=== PATIENT | female | born 1990 | race Caucasian/White ===

== ENCOUNTER 2016-04-12 19:53 | Emergency (ER) | payer MEDICAID ==
[~2016-04-12] VITALS: Ht 152.4 cm; Wt 101.4 kg
[~2016-04-12 19:53] MED LIST: FLAGYL500 MG PO; NAUSEA MED; PRENATAL1 TA7 PO
[2016-04-12 19:54] VITALS: TEMP 98.2
[2016-04-12] MEDS ORDERED: DICLEGIS PO (19:58)
[2016-04-12 20:44] LABS: PH 6 (5-8); URINE APPEARANCE Hazy; URINE BACTERIA None Seen /hpf; URINE BILIRUBIN Negative (NEGATIVE); URINE BLOOD Negative (NEGATIVE); URINE COLOR Yellow; URINE GLUCOSE Negative (NEGATIVE); URINE KETONE Trace (NEGATIVE)
[2016-04-12 20:49] LABS: INFLUENZA B NEGATIVE
[2016-04-12] MEDS ORDERED: CEPHALEXIN500 M1 PO (21:01)
[2016-04-12 21:04] VITALS: BP 114/73; PULSE 100
== END 2016-04-12 21:08 | disposition home or self-care (01) ==
LOC: COL.ER 19:53
PROVIDERS: Emergency Medicine
DX: O99.89 Other specified diseases and conditions complicating pregnancy, childbirth and the puerperium (principal); R50.9 Fever, unspecified; R31.9 Hematuria, unspecified; Z3A.27 27 weeks gestation of pregnancy

== ENCOUNTER 2017-07-03 19:16 | Emergency (ER) | payer MEDICAID ==
[~2017-07-03] VITALS: Ht 152.4 cm; Wt 105.5 kg
[~2017-07-03 19:16] MED LIST changes: +CEPHALEXIN500 M1 PO; +DICLEGIS PO
[2017-07-03 19:22] VITALS: BP 129/69; PULSE 110; TEMP 99.1
== END 2017-07-03 20:30 | disposition home or self-care (01) ==
LOC: COL.ER 19:16
DX: G43.909 Migraine, unspecified, not intractable, without status migrainosus (principal); F17.210 Nicotine dependence, cigarettes, uncomplicated; Z98.890 Other specified postprocedural states
CPT/HCPCS: J1885; J2550

== ENCOUNTER → 2017-07-09 | Outpatient (CLI) | payer MEDICAID ==
[2017-07-09 16:40] LABS: BASO # 0.1 (0.0-0.2); BASO % 0.4 % (0.0-2.0); EOS # 0.2 (0.0-0.7); EOS % 1.8 % (0-4.0); GRAN # 8.7 (1.4-6.5); GRAN % 66.6 % (42.2-75.2); HEMATOCRIT 44.3 % (37.0-47.0); HEMOGLOBIN 14.4 g/dl (12.5-16.0); LYMPH # 3.5 (1.2-3.4); MEAN CELL VOLUME 77 fl (80.0-100.0); MEAN CORPUSCULAR HEMOGLOBIN 25 pg (27.0-31.0); MEAN CORPUSCULAR HGB CONC 33 g/dl (33.0-37.0); MEAN PLATELET VOLUME 9.9 fl (7.4-10.4); MONO # 0.5 (0.1-0.6); MONO % 3.9 % (1.7-9.3); PLATELET COUNT 312 K/mm3 (130-400); RED BLOOD COUNT 5.75 M/mm3 (4.10-5.30); REDCELL DISTRIBUTION WIDTH-CV 15.9 % (11.5-14.5)
[2017-07-09 16:53] LABS: ALBUMIN 4.1 gm/dL (3.5-5.0); BILIRUBIN,TOTAL 0.4 mg/dL (0.0-1.0); C-REACTIVE PROTEIN 0.9 mg/dL (0.0-0.9); CALCIUM 9.3 mg/dL (8.4-10.2); CHOLESTEROL RISK RATIO 4.9; CREATININE, serum 0.86 mg/dL (0.52-1.25); TOTAL PROTEIN 8.1 gm/dL (6.4-8.2)
[2017-07-09 17:10] LABS: ERYTHROCYTE SEDIMENTATION RATE 8 mm/hr (0-20)
[2017-07-09 17:20] LABS: TSH w REFLEX 2.01 uIU/mL (0.465-4.680)
== END ==
LOC: COL.LAB 16:20
PROVIDERS: Family Medicine
DX: R53.82 Chronic fatigue, unspecified (principal); D64.9 Anemia, unspecified; E11.9 Type 2 diabetes mellitus without complications; Z13.220 Encounter for screening for lipoid disorders; Z13.29 Encounter for screening for other suspected endocrine disorder

== ENCOUNTER 2017-09-25 12:51 | Emergency (ER) | payer MEDICAID ==
[~2017-09-25] VITALS: Ht 152.4 cm; Wt 118.2 kg
[2017-09-25 12:53] VITALS: TEMP 98.3
[2017-09-25 13:56] LABS: BASO # 0.1 (0.0-0.2); BASO % 0.5 % (0.0-2.0); EOS # 0.4 (0.0-0.7); EOS % 3.5 % (0-4.0); GRAN # 8.1 (1.4-6.5); GRAN % 64.9 % (42.2-75.2); HEMATOCRIT 41.7 % (37.0-47.0); HEMOGLOBIN 13.8 g/dl (12.5-16.0); LYMPH % 24.2 % (20.0-51.0); MEAN CELL VOLUME 77 fl (80.0-100.0); MEAN CORPUSCULAR HEMOGLOBIN 26 pg (27.0-31.0); MEAN CORPUSCULAR HGB CONC 33 g/dl (33.0-37.0); MEAN PLATELET VOLUME 10.3 fl (7.4-10.4); MONO # 0.8 (0.1-0.6); MONO % 6.5 % (1.7-9.3); PLATELET COUNT 268 K/mm3 (130-400); RED BLOOD COUNT 5.41 M/mm3 (4.10-5.30); REDCELL DISTRIBUTION WIDTH-CV 16.2 % (11.5-14.5)
[2017-09-25 14:08] LABS: ALANINE AMINOTRANSFERASE 66 U/L (9-52); ALKALINE PHOSPHATASE 73 U/L (50-136); ANION GAP 12 mmol/L (7-16); AST,SGOT 45 U/L (15-37); BILIRUBIN,TOTAL 0.4 mg/dL (0.0-1.0); BLOOD UREA NITROGEN 7 mg/dL (7-17); CALCIUM 9.5 mg/dL (8.4-10.2); CARBON DIOXIDE 26 mmol/L (22-30); CHLORIDE 102 mmol/L (98-107); CREATININE, serum 0.63 mg/dL (0.52-1.25); GLUCOSE 115 mg/dL (74-106); LIPASE 26 U/L (23-300); POTASSIUM 3.9 mmol/L (3.4-5.0); SODIUM 140 mmol/L (137-145); TOTAL PROTEIN 7.2 gm/dL (6.4-8.2)
[2017-09-25 14:29] LABS: TROPONIN-I < 0.012 ng/mL (0.000-0.034)
[2017-09-25 15:14] LABS: COLLECTION METHOD CLEAN CATCH
[2017-09-25 15:27] LABS: MUCOUS Present /lpf; PH 6 (5-8); URINE APPEARANCE Cloudy; URINE BACTERIA Many /hpf; URINE BILIRUBIN Negative (NEGATIVE); URINE BLOOD 1+ (NEGATIVE); URINE COLOR Yellow; URINE GLUCOSE Negative (NEGATIVE); URINE KETONE Negative (NEGATIVE); URINE LEUKOCYTE ESTERASE Trace (NEGATIVE); URINE NITRATE Positive (NEGATIVE); URINE PROTEIN(semi-quant) Negative (NEGATIVE); URINE UROBILINOGEN Negative (NEGATIVE)
[2017-09-25] MEDS ORDERED: PROVENTIL0.09 MG/A1 IH (16:25)
[2017-09-25] MEDS ORDERED: ZITHROMAX 250M250 MG PO (16:25)
[2017-09-25 16:31] VITALS: BP 114/74; PULSE 85
[2017-09-27] MEDS ORDERED: CEFTIN500 MG PO (15:40)
== END 2017-09-25 16:32 | disposition home or self-care (01) ==
LOC: COL.ER 12:51
PROVIDERS: Emergency Medicine
DX: J40 Bronchitis, not specified as acute or chronic (principal); R07.9 Chest pain, unspecified
CPT/HCPCS: J1885; J7030

== ENCOUNTER 2017-10-17 22:09 | Emergency (ER) | payer MEDICAID ==
[~2017-10-17] VITALS: Ht 152.4 cm; Wt 117.3 kg
[~2017-10-17 22:09] MED LIST changes: +CEFTIN500 MG PO; +PROVENTIL0.09 MG/A1 IH; +ZITHROMAX 250M250 MG PO
[2017-10-17 22:12] VITALS: TEMP 98.9
[2017-10-17] MEDS ORDERED: MOTRIN 800800 MG/TAB PO (23:03)
[2017-10-17] MEDS ORDERED: TYLENOL 500MG500 MG PO (23:03)
[2017-10-17 23:06] LABS: BASO # 0.1 (0.0-0.2); BASO % 0.6 % (0.0-2.0); EOS # 0.3 (0.0-0.7); EOS % 1.8 % (0-4.0); GRAN # 9.8 (1.4-6.5); GRAN % 63.7 % (42.2-75.2); HEMATOCRIT 39.9 % (37.0-47.0); HEMOGLOBIN 13.2 g/dl (12.5-16.0); LYMPH # 4.2 (1.2-3.4); LYMPH % 27.4 % (20.0-51.0); MEAN CELL VOLUME 78 fl (80.0-100.0); MEAN CORPUSCULAR HEMOGLOBIN 26 pg (27.0-31.0); MEAN CORPUSCULAR HGB CONC 33 g/dl (33.0-37.0); MONO # 0.9 (0.1-0.6); MONO % 5.9 % (1.7-9.3); PLATELET COUNT 267 K/mm3 (130-400); RED BLOOD COUNT 5.09 M/mm3 (4.10-5.30); REDCELL DISTRIBUTION WIDTH-CV 15.8 % (11.5-14.5)
[2017-10-17 23:16] LABS: ALANINE AMINOTRANSFERASE 63 U/L (9-52); ALBUMIN 3.9 gm/dL (3.5-5.0); ALKALINE PHOSPHATASE 68 U/L (50-136); ANION GAP 8 mmol/L (7-16); AST,SGOT 35 U/L (15-37); BILIRUBIN,TOTAL 0.4 mg/dL (0.0-1.0); BLOOD UREA NITROGEN 11 mg/dL (7-17); CALCIUM 9.1 mg/dL (8.4-10.2); CARBON DIOXIDE 27 mmol/L (22-30); CHLORIDE 101 mmol/L (98-107); CREATININE, serum 0.72 mg/dL (0.52-1.25); GLUCOSE 122 mg/dL (74-106); POTASSIUM 3.5 mmol/L (3.4-5.0); SODIUM 137 mmol/L (137-145)
[2017-10-17 23:28] LABS: TROPONIN-I < 0.012 ng/mL (0.000-0.034)
[2017-10-17 23:51] LABS: COLLECTION METHOD CLEAN CATCH
[2017-10-17 23:58] LABS: MUCOUS Present /lpf; PH 5 (5-8); URINE APPEARANCE Cloudy; URINE BACTERIA None Seen /hpf; URINE BILIRUBIN Negative (NEGATIVE); URINE BLOOD 1+ (NEGATIVE); URINE CALCIUM OXALATE CRYSTAL Present /hpf; URINE COLOR Yellow; URINE GLUCOSE Negative (NEGATIVE); URINE KETONE Negative (NEGATIVE); URINE LEUKOCYTE ESTERASE Trace (NEGATIVE); URINE NITRATE Negative (NEGATIVE); URINE PROTEIN(semi-quant) Negative (NEGATIVE); URINE RBC 20-50 /hpf; URINE UROBILINOGEN >=4.0 mg/dL (NEGATIVE)
[2017-10-18 01:24] VITALS: BP 107/72; PULSE 96
== END 2017-10-18 01:24 | disposition home or self-care (01) ==
LOC: COL.ER 22:09
PROVIDERS: Emergency Medicine
DX: R51 Headache (principal); R22.43 Localized swelling, mass and lump, lower limb, bilateral; R22.33 Localized swelling, mass and lump, upper limb, bilateral; Z98.51 Tubal ligation status

== ENCOUNTER 2018-01-26 22:49 | Emergency (ER) | payer MEDICAID ==
[~2018-01-26] VITALS: Ht 152.4 cm; Wt 121.8 kg
[~2018-01-26 22:49] MED LIST changes: +MOTRIN 800800 MG/TAB PO; +TYLENOL 500MG500 MG PO
[2018-01-27 00:25] VITALS: BP 116/62; PULSE 99; TEMP 98.4
== END 2018-01-27 00:25 | disposition home or self-care (01) ==
LOC: COL.ER 22:49
DX: G43.909 Migraine, unspecified, not intractable, without status migrainosus (principal); F17.210 Nicotine dependence, cigarettes, uncomplicated; Z98.890 Other specified postprocedural states; Z98.51 Tubal ligation status
CPT/HCPCS: J1200; J1885; J2765; J7030

== ENCOUNTER 2018-03-31 21:44 | Emergency (ER) | payer MEDICAID ==
[~2018-03-31] VITALS: Ht 152.4 cm; Wt 121.8 kg
[2018-03-31 21:47] VITALS: BP 120/60; TEMP 98.7
[2018-03-31] MEDS ORDERED: DOXYCYCLINE HY100 MG PO (22:08)
[2018-03-31 22:36] VITALS: PULSE 66
== END 2018-03-31 22:37 | disposition home or self-care (01) ==
LOC: COL.ER 21:44
DX: L03.112 Cellulitis of left axilla (principal); F17.210 Nicotine dependence, cigarettes, uncomplicated; E66.9 Obesity, unspecified; Z68.43 Body mass index [BMI] 50.0-59.9, adult

== ENCOUNTER 2018-04-25 00:30 | Emergency (ER) | payer MEDICAID ==
[~2018-04-25] VITALS: Ht 152.4 cm; Wt 119.1 kg
[~2018-04-25 00:30] MED LIST changes: +DOXYCYCLINE HY100 MG PO
[2018-04-25 01:21] LABS: HEMATOCRIT 38.3 % (37.0-47.0); HEMOGLOBIN 12.4 g/dl (12.5-16.0); MEAN CELL VOLUME 77 fl (80.0-100.0); MEAN CORPUSCULAR HEMOGLOBIN 25 pg (27.0-31.0); MEAN CORPUSCULAR HGB CONC 32 g/dl (33.0-37.0); MEAN PLATELET VOLUME 10.2 fl (7.4-10.4); PLATELET COUNT 271 K/mm3 (130-400); RED BLOOD COUNT 4.95 M/mm3 (4.10-5.30); REDCELL DISTRIBUTION WIDTH-CV 16.7 % (11.5-14.5)
[2018-04-25 01:29] LABS: ALANINE AMINOTRANSFERASE 44 U/L (9-52); ALBUMIN 3.7 gm/dL (3.5-5.0); ALKALINE PHOSPHATASE 57 U/L (50-136); ANION GAP 6 mmol/L (7-16); AST,SGOT 39 U/L (15-37); BILIRUBIN,TOTAL 0.2 mg/dL (0.0-1.0); BLOOD UREA NITROGEN 15 mg/dL (7-17); CALCIUM 9.1 mg/dL (8.4-10.2); CARBON DIOXIDE 29 mmol/L (22-30); CHLORIDE 106 mmol/L (98-107); CREATININE, serum 0.66 mg/dL (0.52-1.25); GLUCOSE 132 mg/dL (74-106); SODIUM 141 mmol/L (137-145); TOTAL PROTEIN 6.7 gm/dL (6.4-8.2)
[2018-04-25 01:42] LABS: TROPONIN-I < 0.012 ng/mL (0.000-0.035)
[2018-04-25 01:45] LABS: BAND 12 % (0-10); LYMPHOCYTE 9 % (20.0-51.0); MICROCYTOSIS 1+; NEUTROPHILS 72 % (42.0-75.2); PLATELET ESTIMATE NORMAL (NORMAL)
[2018-04-25 01:46] LABS: ANISOCYTOSIS 1+; HYPOCHROMIA 1+
[2018-04-25 02:25] VITALS: BP 115/60
[2018-04-25 03:50] VITALS: TEMP 97.8
[2018-04-25] MEDS ORDERED: NEB MC (04:10)
[2018-04-25 04:54] VITALS: PULSE 102
== END 2018-04-25 04:54 | disposition home or self-care (01) ==
LOC: COL.ER 00:30
PROVIDERS: Emergency Medicine
DX: J45.909 Unspecified asthma, uncomplicated (principal); J20.9 Acute bronchitis, unspecified; F17.210 Nicotine dependence, cigarettes, uncomplicated

== ENCOUNTER 2018-07-03 22:17 | Emergency (ER) | payer MEDICAID ==
[~2018-07-03] VITALS: Ht 152.4 cm; Wt 130.0 kg
[~2018-07-03 22:17] MED LIST changes: +NEB MC
[2018-07-03 22:26] VITALS: TEMP 98.9
[2018-07-03 23:34] LABS: BASO # 0.1 (0.0-0.2); BASO % 0.4 % (0.0-2.0); EOS # 0.2 (0.0-0.7); EOS % 1.4 % (0-4.0); GRAN # 9.7 (1.4-6.5); GRAN % 64.8 % (42.2-75.2); HEMATOCRIT 41.6 % (37.0-47.0); HEMOGLOBIN 13.4 g/dl (12.5-16.0); LYMPH # 3.9 (1.2-3.4); LYMPH % 26.2 % (20.0-51.0); MEAN CELL VOLUME 78 fl (80.0-100.0); MEAN CORPUSCULAR HEMOGLOBIN 25 pg (27.0-31.0); MEAN CORPUSCULAR HGB CONC 32 g/dl (33.0-37.0); MEAN PLATELET VOLUME 10.2 fl (7.4-10.4); MONO % 6.8 % (1.7-9.3); PLATELET COUNT 273 K/mm3 (130-400); RED BLOOD COUNT 5.33 M/mm3 (4.10-5.30)
[2018-07-03 23:44] LABS: ALANINE AMINOTRANSFERASE 48 U/L (9-52); ALKALINE PHOSPHATASE 74 U/L (50-136); ANION GAP 8 mmol/L (7-16); AST,SGOT 43 U/L (15-37); BILIRUBIN,TOTAL 0.5 mg/dL (0.0-1.0); BLOOD UREA NITROGEN 11 mg/dL (7-17); CALCIUM 9.5 mg/dL (8.4-10.2); CARBON DIOXIDE 28 mmol/L (22-30); CHLORIDE 102 mmol/L (98-107); CREATININE, serum 0.84 (0.52-1.25); GLUCOSE 97 mg/dL (74-106); POTASSIUM 3.6 mmol/L (3.4-5.0); SODIUM 138 mmol/L (137-145); TOTAL PROTEIN 7.3 gm/dL (6.4-8.2)
[2018-07-04 00:04] LABS: TROPONIN-I < 0.012 ng/mL (0.000-0.035)
[2018-07-04] MEDS ORDERED: LASIX 20MG TABL20 MG PO (01:05)
[2018-07-04 01:21] VITALS: BP 120/75; PULSE 97
== END 2018-07-04 01:21 | disposition home or self-care (01) ==
LOC: COL.ER 22:17
PROVIDERS: Emergency Medicine
DX: M79.662 Pain in left lower leg (principal); M79.89 Other specified soft tissue disorders; G43.909 Migraine, unspecified, not intractable, without status migrainosus; F17.210 Nicotine dependence, cigarettes, uncomplicated; Z91.19 Patient's noncompliance with other medical treatment and regimen; Z86.718 Personal history of other venous thrombosis and embolism
CPT/HCPCS: J1650

== ENCOUNTER → 2018-07-04 | Outpatient (CLI) | payer MEDICAID ==
[~2018-07-04] MED LIST changes: +LASIX 20MG TABL20 MG PO
== END ==
LOC: COL.VAS 12:14
DX: Z13.6 Encounter for screening for cardiovascular disorders (principal); M79.89 Other specified soft tissue disorders

== ENCOUNTER 2019-02-10 20:25 | Emergency (ER) | payer MEDICAID ==
[~2019-02-10] VITALS: Ht 154.9 cm; Wt 122.7 kg
[2019-02-10 20:50] LABS: COLLECTION METHOD CLEAN CATCH
[2019-02-10 21:01] LABS: MUCOUS Present /lpf; PH 6 (5-8); SQUAMOUS EPITHELIAL 0-2 /hpf; URINE APPEARANCE Hazy; URINE BACTERIA None Seen /hpf; URINE BILIRUBIN Negative (NEGATIVE); URINE BLOOD 2+ (NEGATIVE); URINE COLOR Yellow; URINE GLUCOSE Negative (NEGATIVE); URINE KETONE Negative (NEGATIVE); URINE LEUKOCYTE ESTERASE Negative (NEGATIVE); URINE NITRATE Negative (NEGATIVE); URINE PROTEIN(semi-quant) Negative (NEGATIVE); URINE UROBILINOGEN Negative (NEGATIVE)
[2019-02-10 21:15] LABS: BASO # 0.1 (0.0-0.2); BASO % 0.4 % (0.0-2.0); EOS # 0.2 (0.0-0.7); EOS % 1.6 % (0-4.0); GRAN # 9.1 (1.4-6.5); GRAN % 62.2 % (42.2-75.2); HEMATOCRIT 45.1 % (37.0-47.0); HEMOGLOBIN 14.6 g/dl (12.5-16.0); LYMPH # 4.1 (1.2-3.4); LYMPH % 28.2 % (20.0-51.0); MEAN CELL VOLUME 76 fl (80.0-100.0); MEAN CORPUSCULAR HEMOGLOBIN 25 pg (27.0-31.0); MEAN CORPUSCULAR HGB CONC 32 g/dl (33.0-37.0); MEAN PLATELET VOLUME 9.9 fl (7.4-10.4); MONO # 1.1 (0.1-0.6); MONO % 7.2 % (1.7-9.3); PLATELET COUNT 275 K/mm3 (130-400)
[2019-02-10 21:43] LABS: ALBUMIN 4.2 gm/dL (3.5-5.0); BILIRUBIN,TOTAL 0.4 mg/dL (0.0-1.0); C-REACTIVE PROTEIN 1.5 mg/dL (0.0-0.9); CALCIUM 9.4 mg/dL (8.4-10.2); CREATININE, serum 0.67 (0.52-1.25); TOTAL PROTEIN 7.6 gm/dL (6.4-8.2)
[2019-02-10] MEDS ORDERED: ZOFRAN 4MG T4 MG/TAB PO (23:00)
[2019-02-10 23:45] VITALS: BP 122/76; PULSE 101; TEMP 98.1
== END 2019-02-10 23:54 | disposition home or self-care (01) ==
LOC: COL.ER 20:25
PROVIDERS: Emergency Medicine
DX: R19.7 Diarrhea, unspecified (principal); R11.2 Nausea with vomiting, unspecified; R10.9 Unspecified abdominal pain; F17.210 Nicotine dependence, cigarettes, uncomplicated; Z98.51 Tubal ligation status; Z98.890 Other specified postprocedural states
CPT/HCPCS: J2405; J3010; J7030; Q9967

== ENCOUNTER 2019-03-19 20:25 | Emergency (ER) | payer MEDICAID ==
[~2019-03-19] VITALS: Ht 154.9 cm; Wt 109.1 kg
[~2019-03-19 20:25] MED LIST changes: +ZOFRAN 4MG T4 MG/TAB PO
[2019-03-19 20:28] VITALS: TEMP 98.3
[2019-03-19] MEDS ORDERED: FLEXERIL 1010 MG/TAB PO (20:52)
[2019-03-19] MEDS ORDERED: PHENERGAN 25 TA25 MG PO (20:53)
[2019-03-19 21:56] VITALS: BP 127/77; PULSE 115
== END 2019-03-19 21:54 | disposition home or self-care (01) ==
LOC: COL.ER 20:25
DX: S83.91XA Sprain of unspecified site of right knee, initial encounter (principal); J45.909 Unspecified asthma, uncomplicated; F17.210 Nicotine dependence, cigarettes, uncomplicated; Z98.51 Tubal ligation status; W10.9XXA Fall (on) (from) unspecified stairs and steps, initial encounter; X50.1XXA Overexertion from prolonged static or awkward postures, initial encounter; Y92.009 Unspecified place in unspecified non-institutional (private) residence as the place of occurrence of the external cause
CPT/HCPCS: L1846

== ENCOUNTER 2019-07-20 21:43 | Emergency (ER) | payer MEDICAID ==
[~2019-07-20] VITALS: Ht 162.6 cm; Wt 121.4 kg
[~2019-07-20 21:43] MED LIST changes: +FLEXERIL 1010 MG/TAB PO; +PHENERGAN 25 TA25 MG PO
[2019-07-20 21:48] VITALS: BP 117/65; TEMP 98.7
[2019-07-20] MEDS ORDERED: BACTRIM DS 8001 TAB PO (22:14)
[2019-07-20 22:24] VITALS: PULSE 105
== END 2019-07-20 22:24 | disposition home or self-care (01) ==
LOC: COL.ER 21:43
DX: L02.412 Cutaneous abscess of left axilla (principal); Z87.891 Personal history of nicotine dependence

== ENCOUNTER 2019-09-14 22:21 | Emergency (ER) | payer MEDICAID ==
[~2019-09-14] VITALS: Ht 154.9 cm; Wt 121.8 kg
[~2019-09-14 22:21] MED LIST changes: +BACTRIM DS 8001 TAB PO
[2019-09-14 22:28] VITALS: TEMP 98.2
[2019-09-14] MEDS ORDERED: DOXYCYCLINE 10100 MG PO (22:48)
[2019-09-14] MEDS ORDERED: ULTRAM 50MG TAB50 MG PO (23:04)
[2019-09-14] MEDS ORDERED: GLUCOPHAGE500 MG/TAB PO (23:05)
[2019-09-14 23:32] VITALS: BP 131/80; PULSE 100
== END 2019-09-14 23:34 | disposition home or self-care (01) ==
LOC: COL.ER 22:21
DX: L60.0 Ingrowing nail (principal); E11.9 Type 2 diabetes mellitus without complications; J44.9 Chronic obstructive pulmonary disease, unspecified; Z79.84 Long term (current) use of oral hypoglycemic drugs; Z79.899 Other long term (current) drug therapy

== ENCOUNTER 2019-12-01 04:03 | Emergency (ER) | payer MEDICAID ==
[~2019-12-01] VITALS: Ht 152.4 cm; Wt 120.0 kg
[~2019-12-01 04:03] MED LIST changes: +DOXYCYCLINE 10100 MG PO; +GLUCOPHAGE500 MG/TAB PO; +ULTRAM 50MG TAB50 MG PO
[2019-12-01 04:07] VITALS: TEMP 97.6
[2019-12-01 04:39] LABS: HEMATOCRIT 44.7 % (37.0-47.0); HEMOGLOBIN 14.8 g/dl (12.5-16.0); MEAN CELL VOLUME 77 fl (80.0-100.0); MEAN CORPUSCULAR HEMOGLOBIN 26 pg (27.0-31.0); MEAN CORPUSCULAR HGB CONC 33 g/dl (33.0-37.0); MEAN PLATELET VOLUME 10.1 fl (7.4-10.4); PLATELET COUNT 281 K/mm3 (130-400); RED BLOOD COUNT 5.79 M/mm3 (4.10-5.30)
[2019-12-01 04:46] LABS: MONOSCREEN NEGATIVE
[2019-12-01 04:59] LABS: ALBUMIN 4.4 gm/dL (3.5-5.0); BILIRUBIN,TOTAL 0.6 mg/dL (0.0-1.0); CREATININE, serum 0.98 (0.52-1.25); POTASSIUM 3.7 mmol/L (3.4-5.0); TOTAL PROTEIN 7.8 gm/dL (6.4-8.2)
[2019-12-01 05:27] LABS: COLLECTION METHOD CLEAN CATCH
[2019-12-01 05:33] LABS: TSH w REFLEX 1.68 uIU/mL (0.465-4.680)
[2019-12-01 05:36] LABS: MUCOUS Present /lpf; PH 5 (5-8); URINE APPEARANCE Hazy; URINE BACTERIA None Seen /hpf; URINE BILIRUBIN Negative (NEGATIVE); URINE BLOOD Negative (NEGATIVE); URINE COLOR Yellow; URINE GLUCOSE Negative (NEGATIVE); URINE KETONE Negative (NEGATIVE); URINE LEUKOCYTE ESTERASE Negative (NEGATIVE); URINE NITRATE Negative (NEGATIVE); URINE PROTEIN(semi-quant) Negative (NEGATIVE); URINE UROBILINOGEN >=4.0 mg/dL (NEGATIVE)
[2019-12-01 06:20] VITALS: BP 130/89; PULSE 91
[2019-12-01 09:04] LABS: ANISOCYTOSIS 1+; LYMPHOCYTE 28 % (20.0-51.0); NEUTROPHILS 68 % (42.0-75.2); PLATELET ESTIMATE NORMAL (NORMAL)
== END 2019-12-01 06:21 | disposition home or self-care (01) ==
LOC: COL.ER 04:03
PROVIDERS: Emergency Medicine
DX: F32.9 Major depressive disorder, single episode, unspecified (principal); R53.81 Other malaise; R53.83 Other fatigue; E11.9 Type 2 diabetes mellitus without complications; J45.909 Unspecified asthma, uncomplicated; E66.9 Obesity, unspecified; Z79.84 Long term (current) use of oral hypoglycemic drugs
CPT/HCPCS: J7030

== ENCOUNTER 2020-06-07 13:53 | Emergency (ER) | payer MEDICAID ==
[~2020-06-07] VITALS: Ht 157.5 cm; Wt 123.6 kg
[2020-06-07] MEDS ORDERED: AMBIEN 5MG TABLE5 MG PO (14:23)
[2020-06-07 15:40] VITALS: BP 115/70; PULSE 99; TEMP 97.6
== END 2020-06-07 15:40 | disposition home or self-care (01) ==
LOC: COL.ER 13:53
DX: S93.401A Sprain of unspecified ligament of right ankle, initial encounter (principal); F17.210 Nicotine dependence, cigarettes, uncomplicated; Z79.84 Long term (current) use of oral hypoglycemic drugs; X58.XXXA Exposure to other specified factors, initial encounter

== ENCOUNTER 2020-07-28 22:22 | Emergency (ER) | payer MEDICAID ==
[~2020-07-28] VITALS: Ht 154.9 cm; Wt 127.3 kg
[~2020-07-28 22:22] MED LIST changes: +AMBIEN 5MG TABLE5 MG PO
[2020-07-28 23:25] VITALS: TEMP 98.4
[2020-07-29] MEDS ORDERED: BACTRIM DS 8001 TAB PO (00:35)
[2020-07-29 00:47] VITALS: BP 132/80; PULSE 81
== END 2020-07-29 00:50 | disposition home or self-care (01) ==
LOC: COL.ER 22:22
DX: M54.5 Low back pain (principal); G89.29 Other chronic pain; S93.401A Sprain of unspecified ligament of right ankle, initial encounter; L73.2 Hidradenitis suppurativa; F17.210 Nicotine dependence, cigarettes, uncomplicated; Z79.84 Long term (current) use of oral hypoglycemic drugs; X58.XXXA Exposure to other specified factors, initial encounter

== ENCOUNTER 2020-08-31 12:51 | Observation (INO) | payer MEDICAID ==
[~2020-08-31] VITALS: Ht 154.9 cm; Wt 136.4 kg
[2020-08-31 13:22] LABS: BASO % 0.5 % (0.0-2.0); EOS # 0.1 (0.0-0.7); EOS % 1.1 % (0-4.0); GRAN % 55.3 % (42.2-75.2); HEMATOCRIT 38.1 % (37.0-47.0); HEMOGLOBIN 12.1 g/dl (12.5-16.0); LYMPH # 2.3 (1.2-3.4); LYMPH % 30.9 % (20.0-51.0); MEAN CELL VOLUME 78 fl (80.0-100.0); MEAN CORPUSCULAR HEMOGLOBIN 25 pg (27.0-31.0); MEAN CORPUSCULAR HGB CONC 32 g/dl (33.0-37.0); MEAN PLATELET VOLUME 9.4 fl (7.4-10.4); MONO # 0.9 (0.1-0.6); MONO % 11.7 % (1.7-9.3); PLATELET COUNT 247 K/mm3 (130-400); RED BLOOD COUNT 4.86 M/mm3 (4.10-5.30); REDCELL DISTRIBUTION WIDTH-CV 15.8 % (11.5-14.5)
[2020-08-31] MEDS ORDERED: INDERAL 10MG10 MG PO (13:29)
[2020-08-31] MEDS ORDERED: GLUCOPHAGE500 MG/TAB PO (13:30)
[2020-08-31] MEDS ORDERED: DEPAKOTE ER 25250 MG PO (13:30)
[2020-08-31] MEDS ORDERED: LASIX 40MG TABL40 MG PO (13:30)
[2020-08-31] MEDS ORDERED: CYMBALTA 60MG60 MG PO ×2 (13:31→19:53)
[2020-08-31 13:41] LABS: ALANINE AMINOTRANSFERASE 34 U/L (4-34); ALBUMIN 3.6 gm/dL (3.5-5.0); ALKALINE PHOSPHATASE 46 U/L (50-136); ANION GAP 3 mmol/L (7-16); AST,SGOT 51 U/L (15-37); BILIRUBIN,TOTAL 0.3 mg/dL (0.0-1.0); BLOOD UREA NITROGEN 6 mg/dL (7-17); CALCIUM 8.6 mg/dL (8.4-10.2); CARBON DIOXIDE 33 mmol/L (22-30); CHLORIDE 99 mmol/L (98-107); CREATININE, serum 0.69 (0.52-1.25); GLUCOSE 128 mg/dL (74-106); POTASSIUM 3.4 mmol/L (3.4-5.0); SODIUM 135 mmol/L (137-145); TOTAL PROTEIN 6.8 gm/dL (6.4-8.2)
[2020-08-31 13:58] LABS: TROPONIN-I < 0.012 ng/mL (0.000-0.035)
[2020-08-31 15:45] LABS: TROPONIN-I < 0.012 ng/mL (0.000-0.035)
[2020-08-31 16:18] LABS: COLLECTION METHOD CLEAN CATCH
[2020-08-31 16:47] LABS: MUCOUS Present /lpf; PH 6 (5-8); SQUAMOUS EPITHELIAL 20-50 /hpf; URINE APPEARANCE Cloudy; URINE BACTERIA Rare /hpf; URINE BILIRUBIN Negative (NEGATIVE); URINE BLOOD 1+ (NEGATIVE); URINE CALCIUM OXALATE CRYSTAL Present /hpf; URINE COLOR Yellow; URINE GLUCOSE Negative (NEGATIVE); URINE KETONE Negative (NEGATIVE); URINE LEUKOCYTE ESTERASE Negative (NEGATIVE); URINE NITRATE Negative (NEGATIVE); URINE PROTEIN(semi-quant) Negative (NEGATIVE)
[2020-08-31 18:14] VITALS: BP 119/55; PULSE 105; TEMP 98.4
[2020-08-31 19:05] VITALS: BP 102/56; PULSE 110; TEMP 98.3
[2020-08-31] MEDS ORDERED: NATURAL POTASS595 MG PO (19:32)
[2020-08-31] MEDS ORDERED: ULTRAM 50MG TAB50 MG PO (19:35)
[2020-08-31] MEDS ORDERED: PHENERGAN 25 TA25 MG PO (19:38)
[2020-08-31] MEDS ORDERED: MINIPRESS2 MG PO (19:53)
[2020-08-31] MEDS ORDERED: VITAMIN D 400400 IU PO (19:54)
--- NOTE | 2020-08-31 20:00 | NUR ---
Assessment complete. Patient is alert and oriented with no complaints of pain. She has an unproductive cough. She wears 2 liters 02 via nasal cannula and is satting 97%. Patient is very obese; She is able to ambulate idependently in room. Lung sounds are clear in upper lobes and diminished in the bases, more so on the left side. Non-pitting edema is noted in BLE. Patient education provided regarding lab results. Call light in reach.
[2020-09-01 00:58] VITALS: BP 108/56; PULSE 110; TEMP 98.6
[2020-09-01 06:45] LABS: BASO % 0.1 % (0.0-2.0); EOS % 0.1 % (0-4.0); GRAN # 5.7 (1.4-6.5); GRAN % 69.1 % (42.2-75.2); HEMATOCRIT 39.1 % (37.0-47.0); HEMOGLOBIN 12.3 g/dl (12.5-16.0); LYMPH # 1.6 (1.2-3.4); LYMPH % 19.8 % (20.0-51.0); MEAN CELL VOLUME 80 fl (80.0-100.0); MEAN CORPUSCULAR HEMOGLOBIN 25 pg (27.0-31.0); MEAN CORPUSCULAR HGB CONC 32 g/dl (33.0-37.0); MEAN PLATELET VOLUME 10.1 fl (7.4-10.4); MONO # 0.8 (0.1-0.6); MONO % 9.9 % (1.7-9.3); PLATELET COUNT 257 K/mm3 (130-400); REDCELL DISTRIBUTION WIDTH-CV 15.8 % (11.5-14.5)
[2020-09-01 07:04] LABS: CALCIUM 9.1 mg/dL (8.4-10.2); CREATININE, serum 0.68 (0.52-1.25)
[2020-09-01 07:27] LABS: THYROID STIMULATING HORMONE 0.672 uIU/mL (0.465-4.680)
--- NOTE | 2020-09-01 07:28 | NUR ---
Patient asleep in bed upon entering the room. No signs of pain, discomfort, SOA, or futher needs at this time. Will contine to monitor. Call light in reach.
[2020-09-01 07:46] LABS: CHOLESTEROL RISK RATIO 6.9
[2020-09-01 07:50] VITALS: BP 106/57; PULSE 109; TEMP 98.3
--- NOTE | 2020-09-01 08:00 | NUR ---
Scheduled medications given, assessment preformed. Patient currently is not wearing O2 at rest, does not C/O SOA. Patient denies any pain, discomfort, or futher needs at this time. Will continue to monitor. Call light in reach.
--- NOTE | 2020-09-01 10:22 | NUR ---
PT STATES THAT SHE IS PRESCRIBED 2L CONTINUOUS O2 PER HER PC. PT DID NOT REQUIRE 02 TO MAINTAIN A SAT OF >88%, HOWEVER PT DID EXHIBIT INCREASED WOB WHICH DECREASED WHEN PLACED ON 1LPM OF 02. 1-2LPM OF 02 W/ACTIVITY WOULD BE OF BENEFIT TO THIS PT.
--- NOTE | 2020-09-01 11:09 | NUR ---
Veterinary Laboratory Technician attended clinical rounds with the team. Patient to return home today. SW met with patient to discuss discharge planning. Patient lives in [place] with her mother, Eliana (ph#[phone]) and her three children ages 8, 5, and 4. Patient is engaged to her fiance, Roc (ph#[phone]). Patient sees Kelly Sanchez for primary care and obtains medications from [facility] in with no difficulties. Patient has home oxygen through [facility] and also uses a nebulizer at home. Patient is independent with ADLS and plans to return home upon discharge. Discharge Plan: Home
--- NOTE | 2020-09-01 11:43 | NUR ---
First visit from the cafe team member. No needs right now.
[2020-09-01 12:02] VITALS: BP 126/59; PULSE 94; TEMP 97.8
[2020-09-01] MEDS ORDERED: OMNICEF 300MG300 MG PO (12:50)
[2020-09-01] MEDS ORDERED: ZITHROMAX 250M250 MG PO (12:53)
[2020-09-01] MEDS ORDERED: LIPITOR 10MG10 MG PO (12:54)
[2020-09-01] MEDS ORDERED: PROAIR HFA0.09 MG/AC IH (12:54)
--- NOTE | 2020-09-01 15:34 | NUR ---
Patient discharge instructions/education given. Patient verbalizes an understanding of the teaching and denies any further questions or concerns. IV DC'd catheter intact, no signs of phlebitis. VSS. Patient escorted from the building by [facility] via wheelchair.
== END 2020-09-01 15:37 | disposition home or self-care (01) ==
LOC: COL.ER 12:51 → MEDICAL 16:31
PROVIDERS: Emergency Medicine; ADMIT Internal Medicine
DX: J18.1 Lobar pneumonia, unspecified organism (principal); J45.909 Unspecified asthma, uncomplicated; E66.2 Morbid (severe) obesity with alveolar hypoventilation; E78.5 Hyperlipidemia, unspecified; E11.9 Type 2 diabetes mellitus without complications; R59.0 Localized enlarged lymph nodes; G43.909 Migraine, unspecified, not intractable, without status migrainosus; Z79.84 Long term (current) use of oral hypoglycemic drugs; Z20.822 Contact with and (suspected) exposure to COVID-19; Z99.89 Dependence on other enabling machines and devices; Z79.899 Other long term (current) drug therapy
CPT/HCPCS: 99238; G0378; J0696; J1644; J1815; J2930; J7030; Q9967

== ENCOUNTER → 2020-12-14 | Emergency (ER) | payer MEDICAID ==
[~2020-12-14] VITALS: Ht 154.9 cm; Wt 128.0 kg
[~2020-12-14] MED LIST changes: +CYMBALTA 60MG60 MG PO; +DEPAKOTE ER 25250 MG PO; +INDERAL 10MG10 MG PO; +LASIX 40MG TABL40 MG PO; +LIPITOR 10MG10 MG PO; +MINIPRESS2 MG PO; +NATURAL POTASS595 MG PO; +OMNICEF 300MG300 MG PO; +PROAIR HFA0.09 MG/AC IH; +VITAMIN D 400400 IU PO
[2020-12-14 23:04] VITALS: BP 117/78; PULSE 111; TEMP 98.7
== END ==
LOC: COL.ER 22:54
DX: R51.9 Headache, unspecified (principal); E11.9 Type 2 diabetes mellitus without complications; F32.9 Major depressive disorder, single episode, unspecified; J45.909 Unspecified asthma, uncomplicated; Z79.84 Long term (current) use of oral hypoglycemic drugs; Z79.899 Other long term (current) drug therapy
CPT/HCPCS: J1885

== ENCOUNTER 2021-02-11 21:09 | Emergency (ER) | payer MEDICAID ==
[~2021-02-11] VITALS: Ht 157.5 cm; Wt 127.3 kg
[2021-02-11 21:31] VITALS: TEMP 98
[2021-02-11 22:44] VITALS: BP 154/70; PULSE 76
== END 2021-02-11 22:44 | disposition home or self-care (01) ==
LOC: COL.ER 21:09
DX: S51.812A Laceration without foreign body of left forearm, initial encounter (principal); J45.909 Unspecified asthma, uncomplicated; E11.9 Type 2 diabetes mellitus without complications; G43.909 Migraine, unspecified, not intractable, without status migrainosus; F32.A Depression, unspecified; F17.210 Nicotine dependence, cigarettes, uncomplicated; Z79.84 Long term (current) use of oral hypoglycemic drugs; Z79.899 Other long term (current) drug therapy; W26.8XXA Contact with other sharp object(s), not elsewhere classified, initial encounter

== ENCOUNTER 2021-06-01 10:09 | Emergency (ER) | payer MEDICAID ==
[~2021-06-01] VITALS: Ht 154.9 cm; Wt 150.0 kg
[2021-06-01 10:22] VITALS: BP 160/84
[2021-06-01] MEDS ORDERED: MOTRIN 800800 MG/TAB PO (12:59)
[2021-06-01] MEDS ORDERED: NORCO 325 MG-51 TAB PO (12:59)
[2021-06-01 13:08] VITALS: PULSE 97
== END 2021-06-01 13:08 | disposition home or self-care (01) ==
LOC: COL.ER 10:09
DX: M79.89 Other specified soft tissue disorders (principal); E66.01 Morbid (severe) obesity due to excess calories; Z68.44 Body mass index [BMI] 60.0-69.9, adult